=== PATIENT | male | born 1950 | race Caucasian/White ===

== ENCOUNTER 2024-06-12 09:38 | Inpatient (IN) | payer OTHER, MEDICARE ==
[~2024-06-12] VITALS: Ht 174 cm; Wt 74.8 kg
[2024-06-12 09:38] VITALS: BP_SYST 98; PULSE 76; RESP 18; TEMP 97.3; O2SAT 96
[2024-06-12 10:09] LABS: BASOPHILS % (AUTO) 0.2 % (0.0-2.0); EOSINOPHILS # (AUTO) 0.1 K/uL (0.0-0.4); HEMATOCRIT 43.6 % (36-54); HEMOGLOBIN 14.3 g/dL (14.0-18.0); LYMPHOCYTES # (AUTO) 1.4 K/uL (1.0-5.5); MEAN CORPUSCULAR HEMOGLOBIN 29 pg (27-31); MEAN CORPUSCULAR HGB CONC 33 % (32-36); MEAN CORPUSCULAR VOLUME 88 fL (79.0-98.0); MONOCYTES # (AUTO) 0.9 K/uL (0.0-1.0); MONOCYTES % (AUTO) 9.7 % (1.7-9.3); NEUTROPHILS # (AUTO) 6.5 K/uL (1.8-7.7); NEUTROPHILS % (AUTO) 73.1 % (40.0-70.0); PLATELET COUNT (AUTO) 322 K/uL (130-430); RED BLOOD CELL COUNT(AUTO) 4.96 MIL/uL (4.2-6.2); RED CELL DISTRIBUTION WIDTH 13.9 % (9.0-15.0); WHITE BLOOD COUNT (AUTO) 8.9 K/uL (4.8-10.8)
[2024-06-12 10:13] LABS: ALANINE AMINOTRANSFERASE 17 U/L (12-78); ALBUMIN 3.9 g/dL (3.4-4.8); ANION GAP 14 (5-15); ASPARTATE AMINOTRANSFERASE 19 U/L (10-37); BILIRUBIN,DIRECT 0.3 mg/dL (0.0-0.3); CALCIUM 9.4 mg/dL (8.4-11.0); CARBON DIOXIDE 20 mmol/L (23-29); CHLORIDE 103 mmol/L (98-107); CREATININE 3.42 mg/dL (0.55-1.30); GLUCOSE 124 mg/dL (74-106); POTASSIUM 4.7 mmol/L (3.5-5.1); SODIUM SERUM 137 mmol/L (136-145); TOTAL PROTEIN, SERUM 7.5 g/dL (6.4-8.3); UREA NITROGEN, BLOOD 63 mg/dL (8-21)
[2024-06-12] MEDS: NS 1000 ML IV.SOLN IV ONE (10:31)
[2024-06-12 10:36] LABS: BILIRUBIN,URINE NEGATIVE (NEGATIVE); BLOOD, URINE NEGATIVE (NEGATIVE); CLARITY/URINE CLEAR (CLEAR); COLOR,URINE YELLOW (YELLOW); GLUCOSE,URINE NEGATIVE (NEGATIVE); KETONES,URINE NEGATIVE (NEGATIVE); LEUKOCYTE ESTERASE ,URINE NEGATIVE (NEGATIVE); NITRITE, URINE NEGATIVE (NEGATIVE); PROTEIN URINE TRACE (NEGATIVE); UROBILINOGEN,URINE 0.2 (0.2-1.0)
[2024-06-12 11:07] LABS: BARBITURATE, URINE NEGATIVE (NEG <=200); BENZODIAZEPINE, URINE NEGATIVE (NEG <=150); CANNABINOID, URINE NEGATIVE (NEG <=50); COCAINE, URINE NEGATIVE (NEG <=150); METHAMPHETAMINES SCREEN,URINE NEGATIVE (NEG <=500); OPIATE, URINE NEGATIVE (NEG <=100); PHENCYCLIDINE SCREEN,URINE NEGATIVE (NEG <=25); UR TRICYCLIC ANTIDEPRESSANTS NEGATIVE (NEG <=300); URINE AMPHETAMINE NEGATIVE (NEG <=500); URINE METHADONE NEGATIVE (NEG <=200); URINE OXYCODONE SCREEN NEGATIVE (NEG <=100)
[2024-06-12] MEDS ORDERED: LISI20TA30 PO (11:45)
[2024-06-12] MEDS ORDERED: CLOP75TA32 PO (11:45)
[2024-06-12] MEDS ORDERED: ATOR40TA68 PO (11:45)
[2024-06-12] MEDS ORDERED: NACL 0.9% 1,000 ML IV SCH (12:30)
[2024-06-12] MEDS ORDERED: ACETAMINOPHEN 325 MG TABLET PO PRN ×2 (13:00→13:15)
[2024-06-12] MEDS ORDERED: ONDANSETRON HCL 4 MG/2 ML VIAL IVP PRN (13:00)
[2024-06-12] MEDS ORDERED: LORazepam 2 MG/ML VIAL IVP PRN (13:00)
[2024-06-12] MEDS: NACL 0.9% 1,000 ML IV SCH (13:20)
[2024-06-12 16:24] VITALS: BP_SYST 147; PULSE 74; RESP 16; TEMP 98.1
[2024-06-12] MEDS: amLODIPine BESYLATE 10 MG TABLET PO ONE (17:47)
[2024-06-12] MEDS ORDERED: hydrALAZINE HCL 20 MG/ML VIAL IVP PRN (18:15)
[2024-06-12] MEDS: ATORVASTATIN 20 MG TABLET PO SCH (18:54)
[2024-06-12] MEDS: CLOPIDOGREL BISULFATE 75 MG TABLET PO SCH (18:55)
[2024-06-12] MEDS: HEPARIN SODIUM,PORCINE 5,000 UNITS/ML VIAL SUBCUT SCH (18:57)
[2024-06-12 20:00] VITALS: BP_SYST 133; PULSE 65; RESP 18; TEMP 97.6; O2SAT 94
[2024-06-12 20:01] VITALS: BP_SYST 133; PULSE 65; RESP 18; TEMP 97.7; O2SAT 94
[2024-06-12 22:05] VITALS: O2SAT 94
[2024-06-13] VITALS: BP_SYST 135; PULSE 68
[2024-06-13 00:05] VITALS: BP_SYST 158; PULSE 69; RESP 18; TEMP 97.9; O2SAT 99
[2024-06-13 07:19] LABS: BASOPHILS % (AUTO) 0.4 % (0.0-2.0); EOSINOPHILS # (AUTO) 0.2 K/uL (0.0-0.4); EOSINOPHILS % (AUTO) 2.5 % (0.0-4.0); HEMATOCRIT 38.4 % (36-54); HEMOGLOBIN 12.4 g/dL (14.0-18.0); LYMPHOCYTES # (AUTO) 1.4 K/uL (1.0-5.5); LYMPHOCYTES % (AUTO) 21.7 % (20.5-51.5); MEAN CORPUSCULAR HEMOGLOBIN 28 pg (27-31); MEAN CORPUSCULAR HGB CONC 32 % (32-36); MEAN CORPUSCULAR VOLUME 87 fL (79.0-98.0); MONOCYTES # (AUTO) 0.6 K/uL (0.0-1.0); MONOCYTES % (AUTO) 9.6 % (1.7-9.3); NEUTROPHILS # (AUTO) 4.1 K/uL (1.8-7.7); NEUTROPHILS % (AUTO) 65.8 % (40.0-70.0); PLATELET COUNT (AUTO) 252 K/uL (130-430); RED BLOOD CELL COUNT(AUTO) 4.43 MIL/uL (4.2-6.2); WHITE BLOOD COUNT (AUTO) 6.3 K/uL (4.8-10.8)
[2024-06-13 07:45] VITALS: BP_SYST 169; PULSE 64; RESP 14; TEMP 97.9; O2SAT 98
[2024-06-13 07:53] LABS: ALANINE AMINOTRANSFERASE 14 U/L (12-78); ALBUMIN 2.8 g/dL (3.4-4.8); ANION GAP 7 (5-15); ASPARTATE AMINOTRANSFERASE 11 U/L (10-37); CALCIUM 8.3 mg/dL (8.4-11.0); CARBON DIOXIDE 22 mmol/L (23-29); CHLORIDE 110 mmol/L (98-107); GLUCOSE 94 mg/dL (74-106); PHOSPHORUS 2.2 mg/dL (2.7-4.5); POTASSIUM 4.2 mmol/L (3.5-5.1); SODIUM SERUM 139 mmol/L (136-145); TOTAL BILIRUBIN 1.2 mg/dL (0.0-1.0); TOTAL PROTEIN, SERUM 5.6 g/dL (6.4-8.3); UREA NITROGEN, BLOOD 46 mg/dL (8-21)
[2024-06-13] MEDS: lisinopriL 20 MG TABLET PO SCH (09:24)
[2024-06-13 11:02] VITALS: BP_SYST 157; PULSE 68; RESP 15; TEMP 98; O2SAT 96
[2024-06-13 12:39] VITALS: BP_SYST 135; PULSE 72; RESP 14; TEMP 98.3; O2SAT 96
== END 2024-06-13 15:00 | disposition home or self-care (01) | DRG 640 ==
LOC: SED 09:38 → STU 12:49
PROVIDERS: ADMIT Student in an Organized Health Care Education/Training Program; ATTEND Student in an Organized Health Care Education/Training Program
DX: E86.0 Dehydration (principal); N17.0 Acute kidney failure with tubular necrosis; I25.10 Atherosclerotic heart disease of native coronary artery without angina pectoris; I10 Essential (primary) hypertension; E80.6 Other disorders of bilirubin metabolism; F10.10 Alcohol abuse, uncomplicated; Z88.8 Allergy status to other drugs, medicaments and biological substances; Z79.899 Other long term (current) drug therapy; Z86.73 Personal history of transient ischemic attack (TIA), and cerebral infarction without residual deficits
CPT/HCPCS: 36415; 70450-TC; 71045; 76700; 80048; 80053; 80076; 80307; 81001; 81003; 82550; 83735; 84100; 85025; 93005; 93306; 99285; G0378; G0482; J1644